=== PATIENT | male | born 1980 | race Caucasian/White ===

== ENCOUNTER 2020-02-22 08:22 | Emergency (ER) | payer BC ==
[2020-02-22] MEDS ORDERED: CHERRY SYRUP 10 ML UDC PO ONE (10:32)
[2020-02-22] MEDS ORDERED: DEXAMETHASONE 10 MG/ML VIAL PO STA (10:32)
[2020-02-22] MEDS ORDERED: KETOROLAC 60 MG/2 ML VIAL IM STA (10:32)
--- NOTE | 2020-02-22 10:59 | XRAY Report ---
PROCEDURE: Foot 3 View RT INDICATIONS: plantar pain TECHNIQUE: 3 views of the foot were acquired. COMPARISON: None FINDINGS: Bones: No fractures or dislocations. No suspicious bony lesions. Soft tissues: No tibiotalar joint effusion. Achilles tendon appears normal. IMPRESSION: No significant plain film abnormality is seen. If it would be helpful for clinical management decision making, please consider a dedicated ankle MRI for further evaluation (assuming that there is no contraindication). Reviewed by: Gm Ibarra MD on 02/22/2020 9:57 AM [facility] Approved by: Gm Ibarra MD on 02/22/2020 9:57 AM [facility] Station ID: [id number]
--- NOTE | 2020-02-22 11:31 | ED Physician Documentation ---
PD HPI LOWER EXT INJURY - Stated complaint Stated Complaint: R FOOT PX - Chief complaint Chief Complaint: Ext Problem - History obtained from History obtained from: Patient, Family - History of Present Illness PD HPI LOW EXT INJURY LOCATION: Right, Foot Type of injury: Other (hiking overuse) Where injury occurred: [place] Timing - onset: Yesterday Timing - duration: Days (1) Timing - details: Gradual onset, Still present Improved by: Rest Worsened by: Moving, Palpating Associated symptoms: No: Weakness, Numbness, Tingling Contributing factors: No: Anticoagulated Similar symptoms before: Has not had sx before Recently seen: Not recently seen - Additional information Additional information: The 39-year-old male has started hiking again with his and he went on a long hike subsequently has developed pain in the sole of his foot. He has significant enough pain that he is not able to walk comfortably.He does not know of any specific injury to his foot.He has not had plantar fasciitis previously Review of Systems Constitutional: denies: Fever Eyes: denies: Decreased vision Ears: denies: Ear pain Nose: denies: Congestion Throat: denies: Sore throat Respiratory: denies: Dyspnea GI: denies: Vomiting PD PAST MEDICAL HISTORY - Past Medical History Past Medical History: Yes Endocrine/Autoimmune: HyPOthyroidism - Past Surgical History Past Surgical History: No - Present Medications Home Medications: Ambulatory Orders Medication Instructions Recorded Confirmed Hydrocodone/Acetaminophen 1 - 2 each PO Q6H PRN #14 tablet 02/22/20 [Hydrocodone-Acetamin 5-325 mg] - Allergies Allergies/Adverse Reactions: Allergies Allergy/AdvReac Type Severity Reaction Status Date / Time No Known Drug Allergies Allergy Verified 02/22/20 08:40 - Social History Does the pt smoke?: No Smoking Status: Never smoker Does the pt drink ETOH?: No Does the pt have substance abuse?: No PD ED PE NORMAL - Vitals Vital signs reviewed: Yes (Hypertensive) - General General: Alert and oriented X 3, No acute distress, Well developed/nourished - HEENT HEENT: Atraumatic, PERRL, EOMI - Respiratory Respiratory: No respiratory distress - Extremities Extremities: No deformity, Normal ROM s pain, No edema, No calf tenderness / cord, Other (There is tenderness to the plantar surface of the foot specifically just in front of the heel. Distal neurovascular components are intact) - Neuro Neuro: Alert and oriented X 3, financial services manager 2-12 intact, No motor deficit, No sensory deficit, Normal speech Eye Opening: Spontaneous Motor: Obeys Commands Verbal: Oriented GCS Score: 15 - Psych Psych: Normal mood, Normal affect Results - Vitals Vitals: Vital Signs - 24 hr 02/22/20 02/22/20 08:31 11:54 Temperature 37.1 C 37.5 C Heart Rate 81 78 Respiratory 20 15 Rate Blood Pressure 132/83 H 140/80 H O2 Saturation 98 98 Oxygen O2 Source Room air - Rads (name of study) Foot Radiology: Prelim report reviewed (Impression: No significant plain film abnormality is seen.), EMP read indepedently, See rad report PD MEDICAL DECISION MAKING - ED course Complexity details: reviewed results, re-evaluated patient, considered differential, d/w patient ED course: 39-year-old male with plantar fasciitis does not have a heel spur. He is given dexamethasone and Toradol Departure - Departure Disposition: 01 Home, Self Care Clinical Impression: Plantar fasciitis of right foot Condition: Stable Instructions: ED Plantar Fasciitis Follow-Up: [facility] [Provider Group] Prescriptions: Hydrocodone/Acetaminophen [Hydrocodone-Acetamin 5-325 mg] 1 - 2 each PO Q6H PRN #14 tablet PRN Reason: Pain Discharge Date/Time: 02/22/20 11:57
[2020-02-22 11:56] VITALS: BP 140/80
== END 2020-02-22 11:57 | disposition home or self-care (01) ==
LOC: ED 08:22
DX: M72.2 Plantar fascial fibromatosis (principal)
CPT/HCPCS: 73630; 96372; 99283; 99284; A9270

== ENCOUNTER 2020-03-29 12:44 | Outpatient (CLI) | payer BC | END 2020-03-29 12:45 | disposition home or self-care (01) | LOC: COV 12:44 | PROVIDERS: ATTEND Family Medicine | DX: Z20.828 Contact with and (suspected) exposure to other viral communicable diseases (principal) ==